=== PATIENT | male | born 1985 | race Caucasian/White ===

== ENCOUNTER 2023-12-23 20:59 | Emergency (ER) | payer MEDICAID, SELFPAY ==
[2023-12-23 21:09] VITALS: BP 189/112; PULSE 85; RESP 16; TEMP 36.4; O2SAT 99; BMI 39.1
--- NOTE | 2023-12-23 22:18 | W.ED.URI ---
HPI - URI/Sore Throat General: Chief Complaint: Upper Respiratory Infection Stated Complaint: sinus congestion swollen Time Seen by Provider: 12/23/23 22:08 History of Present Illness: 38-year-old male patient comes in today with difficulty breathing out of the left nostril. Patient reports he was treated 2 to 3 weeks ago for a rhinosinusitis but continues to have symptoms. Patient states he thought he was going to be referred to manager operations research but is still awaiting appointment. Patient appears nontoxic. Patient appears no acute distress. Related Data Previous Rx's Medication Instructions Recorded doxycycline hyclate 100 mg capsule 100 mg PO BID 10 days #20 caps 12/23/23 fluticasone propionate 50 1 spray intranasal BID #16 grams 12/23/23 mcg/actuation nasal spray,suspension Allergies Allergy/AdvReac Type Severity Reaction Status Date / Time Unable to Assess Allergy Unverified 12/23/23 21:14 Review of Systems General: Reports: 10 or more systems reviewed and unremarkable except in HPI and below Physical Exam Const: COMMON NORMALS: alert HENMT: COMMON NORMALS: normocephalic and TM's normal bilaterally HEAD & SCALP: normocephalic NOSE: Normal nares present and Nasal discharge present TYMPANIC MEMBRANE: TM's normal bilaterally THROAT: posterior oropharynx normal Neck/C-Spine: COMMON NORMALS: full ROM Resp: COMMON NORMALS: normal respiratory effort Back/Pelvis: COMMON NORMALS: thoracic and lumbar spine normal to inspection Extremity: COMMON NORMALS: full ROM Neuro: SENSORIUM/ORIENTATION: Yes alert Skin: COMMON NORMALS: turgor normal GENERAL SKIN EXAM: turgor normal Course Vital Signs: Vital signs: Vital Signs Temperature 97.5 F L 12/23/23 21:09 Pulse Rate 85 12/23/23 21:09 Respiratory Rate 16 12/23/23 21:09 Blood Pressure 189/112 12/23/23 21:09 Pulse Oximetry 99 12/23/23 21:09 Oxygen Delivery Me thod Room Air 12/23/23 21:09 MDM - URI/Sore Throat Medical Decision Making 38-year-old male patient comes in today for complaints of left nostril obstruction and sinus pressure. On exam patient appears nontoxic. Patient has a nasal discharge. Vital signs are normal except for some elevated blood pressure. Differential diagnosis includes chronic rhinosinusitis, nasal polyps, malingering, allergic rhinitis. Patient was placed on Flonase 1 spray each nostril twice daily. Patient agreed on doxycycline and referral was placed to bilingual patient support caseworker for manager operations research. Patient reports understanding agreed to plan. No radiology studies performed this visit Discharge Plan Discharge Patient Disposition: Home Clinical Impression: Chronic rhinosinusitis Condition: Stable Prescriptions: New doxycycline hyclate 100 mg capsule 100 mg PO BID 10 Days Qty: 20 0RF fluticasone propionate 50 mcg/actuation spray,suspension 1 spray intranasal BID Qty: 16 2RF Rx Instructions: administer into each nostril Discharge Orders: Discharge ED (Routine); Ordered 12/23/23 Ordered By: Juan Gongora Discharge Diet: Usual diet Discharge Activity: Increase activity as tolerated Patient Instructions: Rhinosinusitis (ED) Activity Restrictions/Additional Instructions: Thank you for choosing [facility] for your healthcare needs today. Please realize this is an emergency room and that we are providing you with a medical screening exam and this may not be complete and all inclusive of all the testing and or work up that you may need to determine your ailment or severity of your illness. You have been screened and evaluated and felt safe for discharge. Health conditions do change or evolve sometimes and as such it is important that you follow up with your Primary Doctor to be re checked, 3-5 days is a general good time frame for follow up. You are always welcome to return to the ED for re assessment if your symptoms are worsening or you have new concerns Coding Level of Care Code ED [employer] for [place] [place]
[2023-12-23 22:49] VITALS: BP 166/105; PULSE 82; O2SAT 98
== END 2023-12-23 22:53 | disposition home or self-care (01) ==
PROVIDERS: Emergency Provider Nurse Practitioner Family
DX: J32.9 Chronic sinusitis, unspecified (principal)
CPT/HCPCS: 99283